=== PATIENT | male | born 1995 | race Caucasian/White ===

== ENCOUNTER 2024-05-15 09:36 | Emergency (ER) | payer BC, OTHER ==
[2024-05-15] MEDS ORDERED: Famotidine 20 MG TAB ONE (10:39)
[2024-05-15] MEDS ORDERED: predniSONE 20 MG TAB ONE (10:40)
== END 2024-05-15 10:52 | disposition home or self-care (01) ==
LOC: MADERS 09:36
DX: R05.9 Cough, unspecified (principal); R06.02 Shortness of breath
CPT/HCPCS: 71046; J7512